=== PATIENT | female | born 1970 | race Two or more races ===

== ENCOUNTER 2024-11-17 13:47 | Inpatient (IN) | payer OTHER ==
[~2024-11-17] VITALS: Ht 157.5 cm; Wt 63.5 kg
[2024-11-17] MEDS ORDERED: ZESTRIL10 M1 (15:41)
--- NOTE | 2024-11-17 15:41 | NUR ---
PTE ALERTA Y ORIENTADA X3 VERBALIZA QUE TIENE LAS [id number] HINCHADAS HACE BRET SEMANA SE LE IMTIAZ S/V Y SE UBICA.
[2024-11-17 18:03] LABS: BASO % 0.8 % (0.1-1.2); EOS # 0.18 (0.04-0.54); EOS % 4.5 % (0.7-7.0); LYMPH # 1.40 (1.18-3.74); LYMPH % 35.0 % (19.3-53.1); MEAN PLATELET VOLUME 10.30 fl (9.4-12.4); MONO # 0.37 (0.24-0.82); MONO % 9.3 % (4.7-12.5); NEUT # 2.01 (1.56-6.13); NEUT % 50.1 % (34.0-71.1); RED CELL DISTRIBUTION WIDTH 16.7 % (11.6-14.4)
--- NOTE | 2024-11-17 18:04 | NUR ---
SE ORIENTA A PACIENTE SOBRE TX MEDICO, REFIERE ENTENDER. SE COLECTAN MUESTRAS DE LABORATORIO BAJO MEDIDAS ASEPTICAS. SE COORDINA HAROLDO X.
[2024-11-17 18:31] LABS: ALT/SGPT 17.0 U/L (12-78); AST/SGOT 26.0 U/L (15-37); BILIRUBIN TOTAL 2.5 mg/dL (0.3-1.2); BUN CREA RATIO 22.0 (7.0-25.0); CREATININE SERUM 0.49 mg/dL (0.55-1.02); GFR 131.12; GLOBULINA 3.6 G/DL (2.4-3.5); GLUCOSE FASTING 167.0 mg/dL (65-100); OSMOLALITY SERUM 294.0 MOSM/KG (275-295)
[2024-11-17 21:51] LABS: URINE APPEARANCE Clear; URINE BILIRRUBIN Small (NEGATIVE); URINE BLOOD Negative; URINE COLOR Dark Yellow; URINE GLUCOSE Negative (NEGATIVE); URINE KETONE Negative (NEGATIVE); URINE LEUKOCYTE Trace; URINE NITRATE Negative; URINE PROTEIN 30 (NEGATIVE); URINE UROBILINOGEN 1.0 E.U./dl
[2024-11-17 21:55] LABS: URINE BACTERIA 2534.3 uL (0.0-1933); URINE EPITHELIAL CELLS 43.6 uL (0.0-38.8); URINE RBC 12.7 uL (0.0-20.8); URINE WBC 66.5 uL (0.0-23.2)
[2024-11-17 21:56] LABS: URINE CAST 0.29 uL (0.0-1.40)
[2024-11-17] MEDS ORDERED: ENOXAPARIN SODIUM 40 MG/0.4 ML SYRINGE SUBCUTANEO SCH (22:27)
[2024-11-17] MEDS ORDERED: ACETAMINOPHEN 500 MG GEL..CAP PO PRN (22:30)
[2024-11-17] MEDS ORDERED: DEXTROSE 50 % IN WATER 0.5 G/ML DISP.SYRIN IV PRN (22:30)
[2024-11-17] MEDS ORDERED: INSULIN LISPRO 1,000 UNIT/10 ML UNITS SUBCUTANEO PRN (22:30)
[2024-11-17] MEDS ORDERED: NITROGLYCERIN IN 5 % DEXTROSE 250 ML IV SCH (22:30)
[2024-11-17] MEDS ORDERED: PROPRANOLOL HCL 40 MG TABLET PO SCH (22:32)
[2024-11-18] VITALS (12 sets, daily range): BP systolic 107–137; BP diastolic 51–72; O2SAT 96–100
[2024-11-18 08:28] LABS: INR 1.16
[2024-11-18] MEDS ORDERED: FAMOTIDINE/PF 20 MG in 0.9 % SODIUM CHLORIDE 8 ML IV PUSH SCH (09:00)
[2024-11-18 09:11] LABS: CHOL HDL RATIO 4.4 (0-5.0); HDL 20.0 mg/dl (40-60); LDL 53.0 mg/dl (0-130); VLDL 14.0 (0-39)
[2024-11-18 09:51] LABS: FREE TRIODOTIRONINE 16.35 pg/ml (2.18-3.98); T4 FREE 4.95 NG/ML (0.76-1.46); TSH < 0.005 uIU/mL (0.358-3.74)
[2024-11-18] MEDS ORDERED: DEXTROSE 50 % IN WATER 0.5 G/ML VIAL IV PRN (10:15)
[2024-11-18] MEDS ORDERED: CEFTRIAXONE SODIUM 2,000 MG in 0.9 % SODIUM CHLORIDE 100 ML IV SCH (10:52)
[2024-11-18] MEDS ORDERED: CEFTRIAXONE SODIUM 2,000 MG in DEXTROSE 5 % IN WATER 100 ML IV NR (11:45)
[2024-11-18] MEDS ORDERED: CEFTRIAXONE SODIUM 2,000 MG in DEXTROSE 5 % IN WATER 100 ML IV SCH (17:00)
[2024-11-18] MEDS ORDERED: METHIMAZOLE 10 MG TABLET PO SCH (21:00)
[2024-11-19] VITALS (17 sets, daily range): BP systolic 106–153; BP diastolic 50–94; O2SAT 96–100
[2024-11-19] MEDS ORDERED: METOPROLOL SUCCINATE 25 MG TAB.SR.24H PO STA (05:14)
[2024-11-19 06:23] LABS: BASO % 0.4 % (0.1-1.2); EOS # 0.27 (0.04-0.54); EOS % 5.8 % (0.7-7.0); LYMPH # 1.76 (1.18-3.74); LYMPH % 37.7 % (19.3-53.1); MEAN PLATELET VOLUME 10.40 fl (9.4-12.4); MONO # 0.41 (0.24-0.82); MONO % 8.8 % (4.7-12.5); NEUT # 2.20 (1.56-6.13); NEUT % 47.1 % (34.0-71.1); RED CELL DISTRIBUTION WIDTH 16.7 % (11.6-14.4)
[2024-11-19 06:50] LABS: ALT/SGPT 16.0 U/L (12-78); AST/SGOT 25.0 U/L (15-37); BILIRUBIN TOTAL 2.69 mg/dL (0.3-1.2); BUN CREA RATIO 28.0 (7.0-25.0); CREATININE SERUM 0.43 mg/dL (0.55-1.02); GFR 152.45; GLOBULINA 3.4 G/DL (2.4-3.5); GLUCOSE FASTING 102.0 mg/dL (65-100); OSMOLALITY SERUM 287.0 MOSM/KG (275-295)
[2024-11-19] MEDS ORDERED: CEFTRIAXONE SODIUM 2,000 MG in DEXTROSE 5 % IN WATER 100 ML IV SCH (09:00)
[2024-11-19] MEDS ORDERED: MAGNESIUM SULFATE IN WATER 50 ML IV NR (13:00)
[2024-11-19] MEDS ORDERED: IRON FUM,PS/FOLIC/BCOMP,C NO.9 1 CAP CAPSULE PO SCH (18:29)
[2024-11-20] VITALS (8 sets, daily range): BP systolic 109–131; BP diastolic 51–83; O2SAT 94–99
[2024-11-20] MEDS ORDERED: ENALAPRIL MALEATE 2.5 MG TABLET PO SCH (09:00)
[2024-11-21] VITALS (9 sets, daily range): BP systolic 116–142; BP diastolic 67–70; O2SAT 95–100
[2024-11-21 06:43] LABS: BASO % 0.6 % (0.1-1.2); EOS # 0.38 (0.04-0.54); EOS % 8.2 % (0.7-7.0); LYMPH # 2.18 (1.18-3.74); LYMPH % 46.8 % (19.3-53.1); MEAN PLATELET VOLUME 11.70 fl (9.4-12.4); MONO # 0.46 (0.24-0.82); MONO % 9.9 % (4.7-12.5); NEUT # 1.60 (1.56-6.13); NEUT % 34.3 % (34.0-71.1); RED CELL DISTRIBUTION WIDTH 16.9 % (11.6-14.4)
[2024-11-21 07:14] LABS: ALT/SGPT 18.0 U/L (12-78); AST/SGOT 24.0 U/L (15-37); BILIRUBIN TOTAL 1.74 mg/dL (0.3-1.2); BUN CREA RATIO 42.0 (7.0-25.0); CREATININE SERUM 0.36 mg/dL (0.55-1.02); GFR 187.14; GLOBULINA 3.2 G/DL (2.4-3.5); GLUCOSE FASTING 106.0 mg/dL (65-100); OSMOLALITY SERUM 288.0 MOSM/KG (275-295)
[2024-11-22] VITALS (9 sets, daily range): BP systolic 119–137; BP diastolic 57–64; O2SAT 95–100
[2024-11-23 00:33] VITALS: O2SAT 97
[2024-11-23 01:31] VITALS: BP 137/60; O2SAT 98
[2024-11-23 06:01] VITALS: O2SAT 97
[2024-11-23 07:26] VITALS: O2SAT 95
[2024-11-23 09:57] VITALS: BP 122/57; O2SAT 96
[2024-11-23 14:03] VITALS: O2SAT 98
[2024-11-23] MEDS ORDERED: INTEGRA PLUS C1 EACH PO (14:09)
[2024-11-23] MEDS ORDERED: ENALAPRIL MALE2.5 MG PO (14:09)
[2024-11-23] MEDS ORDERED: PROPRANOLOL HCL40 MG PO (14:09)
[2024-11-23] MEDS ORDERED: FUROSEMIDE20 MG PO (14:10)
[2024-11-23] MEDS ORDERED: METHIMAZOLE10 MG PO (14:10)
== END 2024-11-23 14:31 | disposition home or self-care (01) | DRG 291 ==
LOC: ER 13:47 → ICU-2 22:44 → SEC-K 11-19 12:55 → MEDI 11-19 17:25
PROVIDERS: General Practice; Preventive Medicine Public Health & General Preventive Medicine; ADMIT Internal Medicine; ATTEND Internal Medicine
PROC: B246ZZZ Ultrasonography of Right and Left Heart (ICD-10-PCS; principal; 2024-11-18)
PROC: 4A12X4Z Monitoring of Cardiac Electrical Activity, External Approach (ICD-10-PCS; 2024-11-20)
DX: I11.0 Hypertensive heart disease with heart failure (principal); I50.23 Acute on chronic systolic (congestive) heart failure; R60.0 Localized edema; E03.8 Other specified hypothyroidism; D64.9 Anemia, unspecified; I27.20 Pulmonary hypertension, unspecified; E11.65 Type 2 diabetes mellitus with hyperglycemia; Z79.4 Long term (current) use of insulin